=== PATIENT | male | born 1975 | race Caucasian/White ===

== ENCOUNTER 2016-06-12 05:15 | Emergency (ER) | payer MEDICARE, MEDICAID ==
[~2016-06-12 05:15] MED LIST: AMLO5TAB22 PO; ASPI81TA82 PO; CARV25TA PO; CIAL20TA PO; FLUD.1 PO; FURO20 PO; LEVEMIR SQ; LYRI50CA2 PO; MONT10TA2 PO; MYCO250C PO; NEPHRO PO; OMEP20TA PO; PRED1TAB PO; REGL5TAB PO; SENO8.6T10 PO; SULF400T20 PO; TACR1CAP PO; TYLE3 PO; VALC450T PO; VIAG100T PO; ZOCO40TA PO; [UNRECOGNIZED DRUG - SUPPLY] TOP
[2016-06-12 05:16] VITALS: BP 121/62; PULSE 74; RESP 16; TEMP 97.9; O2SAT 98
[2016-06-12 06:15] VITALS: BP 114/62; PULSE 74; O2SAT 100
[2016-06-12 06:50] LABS: AUTOMATED NEUTROPHIL # 10.5 TH/MM3 (1.8-7.7); BASOPHIL # 0.2 TH/MM3 (0-0.2); BASOPHIL % 1.4 % (0.0-2.0); EOSINOPHIL # 0.3 TH/MM3 (0-0.4); EOSINOPHIL % 2.2 % (0.0-4.0); HEMATOCRIT 54.5 % (39.0-51.0); LYMPH % 4.8 % (9.0-44.0); LYMPHOCYTE # 0.6 TH/MM3 (1.0-4.8); MEAN CELL VOLUME 92.1 FL (80.0-100.0); MEAN CORPUSCULAR HEMOGLOBIN 29.9 PG (27.0-34.0); MEAN CORPUSCULAR HGB CONC 32.5 % (32.0-36.0); MONO % 13.1 % (0.0-8.0); NEUT % 78.5 % (16.0-70.0); PLATELET COUNT 199 TH/MM3 (150-450); RED BLOOD COUNT 5.91 MIL/MM3 (4.50-5.90); RED CELL DISTRIBUTION WIDTH 16.7 % (11.6-17.2); WHITE BLOOD COUNT 13.3 TH/MM3 (4.0-11.0)
[2016-06-12 06:53] LABS: HEMO FLAGS AUTO DIFF
[2016-06-12 07:03] LABS: ALT (GPT) 48 U/L (12-78); ANION GAP 7 MEQ/L (5-15); APTT (PATIENT) 32.6 SEC (24.3-30.1); AST (GOT) 41 U/L (15-37); BICARBONATE 18.2 MEQ/L (21.0-32.0); BLOOD UREA NITROGEN 52 MG/DL (7-18); CHLORIDE 114 MEQ/L (98-107); GLOMERULAR FILTRATION RATE 49 ML/MIN (>89); MAGNESIUM 2.7 MG/DL (1.5-2.5); POTASSIUM 4.6 MEQ/L (3.5-5.1); PROTHROMBIN TIME - PATIENT 11.2 SEC (9.8-11.6); SODIUM (NA) 139 MEQ/L (136-145)
[2016-06-12 07:04] LABS: ALKALINE PHOSPHATASE 99 U/L (45-117); TOTAL BILIRUBIN ADULT 0.7 MG/DL (0.2-1.0)
--- NOTE | 2016-06-12 07:26 | PD ---
HPI Chief Complaint: Edema Time Seen by Provider: 05:42 Travel History International Travel<30 days: No Contact w/Intl Traveler<30days: No History of Present Illness HPI The patient is 40 year old male who presents to the [facility] emergency department with a history of left leg pain, redness, swelling that he reports began today. He denies having any associated fevers. He reports that there is warmth to the leg. He reports that 3 weeks ago he underwent amputation of his second toe. He reports that this was done by Dr. Monaco at [facility]. He reports that this past week the sutures were removed. He reports that he is also had a wound on his heel that is monitored by his support dba as an outpatient. He reports that he's had multiple scrapings done of his heel in the past. 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 The patient reports that his primary care physician is Dr. Mary Cintron. The patient on review of systems denies having any cough, congestion, neck pain, chest pain, shortness of breath, abdominal pain, vomiting, urinary symptoms, or neurologic symptoms. 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 He denies having any blood in his stool or black or tarry stools. [facility] Past Medical History Narrative Medical The patient's past medical history is significant for chronic renal failure status post renal transplant January 2015, history of diabetes mellitus, history of neuropathy, history of kidney stones, history of hypertension, acid reflux, history of multiple allergies. Hx Anticoagulant Therapy: Yes ADHD: Yes Anemia: Yes Arthritis: No Asthma: No Autoimmune Disease: No Blood Disorders: No Anxiety: No Depression: No Heart Rhythm Problems: No Cancer: No Cardiovascular Problems: No High Cholesterol: No Chemotherapy: No Chest Pain: No Congestive Heart Failure: No COPD: No Cerebrovascular Accident: No Diabetes: Yes (RENAL FAILURE SHUNT LEFT ARM) Patient Takes Glucophage: No Diminished Hearing: No Endocrine: No Gastrointestinal Disorders: Yes (hx of gastric by-pass) GERD: Yes Glaucoma: No Genitourinary: Yes (end stage renal failure) Headaches: No Hepatitis: No Hiatal Hernia: No Hypertension: Yes Immune Disorder: No Implanted Vascular Access Dvce: No Kidney Stones: Yes Medical other: Yes (hx of anemia pancreatic failure) Musculoskeletal: No Neurologic: No Psychiatric: No Reproductive: No Respiratory: No Migraines: No Myocardial Infarction: No Radiation Therapy: No Renal Failure: Yes Seizures: No Sickle Cell Disease: No Sleep Apnea: No Thyroid Disease: No Ulcer: No Past Surgical History Narrative Surgical The patient's past surgical history is significant for an umbilical hernia repair, fistula AV left arm, history of gastric bypass, history of pancreatic transplant, history of kidney transplant. Abdominal Surgery: Yes (gastric by-pass umbilical hernia repair bowel blockage due to hernia) AICD: No Appendectomy: No Arteriovenous Shunt: No Cardiac Surgery: No Cholecystectomy: No Ear Surgery: No Endocrine Surgery: No Eye Surgery: No Genitourinary Surgery: No Gynecologic Surgery: No Insulin Pump: No Joint Replacement: No Neurologic Surgery: No Oral Surgery: Yes (DENTAL SURGERY) Pacemaker: No Thoracic Surgery: No Other Surgery: Yes (pacreas and bilateral kidney trasnplant) Social History Alcohol Use: No Tobacco Use: No (quit within the last year) Substance Use: No Allergies-Medications (Allergen,Severity, Reaction): Coded Allergies: Benadryl (Verified Allergy, Severe, Itching, 06/12/16) Shellfish (Verified Allergy, Severe, ITCHY THROAT, EYES SWELL, 06/12/16) Kelp (Verified Allergy, Intermediate, ITCHY THROAT, EYES SWELL, 06/12/16) Nicorette Gum (Verified Allergy, Intermediate, ITCHY THROAT, EYES SWELL, ) Tomato (Unverified Allergy, Unknown, Edema, 06/12/16) tongue and throat Reported Meds & Prescriptions Reported Meds & Active Scripts Active Viagra (Sildenafil Citrate) 100 Mg Tab 100 Mg PO DIRECTED Cialis (Tadalafil) 20 Mg Tab 20 Mg PO DAILY PRN Omeprazole 20 mg (Omeprazole) 20 Mg Tab 1 Tab PO BID Lasix 20 Mg Tab (Furosemide) 20 Mg Tab 20 Mg PO DAILY Amlodipine Besylate 5 mg (Amlodipine Besylate) 5 Mg Tab 1 Tab PO DAILY Florinef (Fludrocortisone Acetate) 0.1 Mg Tab 0.1 Mg PO DAILY Reglan 5 mg (Metoclopramide HCl) 5 Mg Tab 1 Tab PO BID Singulair (Montelukast Sodium) 10 Mg Tab 10 Mg PO DAILY Lyrica (Pregabalin) 50 Mg Cap 50 Mg PO DAILY Tylenol #3 (Acetaminophen/Codeine Phosphate) Acetaminophen 300/30 Codeine Tab 1 Tab PO Q6H PRN FOR PAIN Carvedilol 25 mg (Carvedilol) 25 Mg Tab 1 Tab PO BID Senokot S (Sennosides-Docusate Sodium) 1 Tab Tab 1 Tab PO BID Valcyte (Valganciclovir) 450 Mg Tab 450 Mg PO DAILY Septra (Sulfamethoxazole-Trimethoprim 400MG/80MG) Tab 1 Tab PO DAILY Aspir-81 (Aspirin) 81 Mg Tab 81 Mg PO DAILY Mycophenolate Mofetil 250 Mg Cap 250 Mg PO BID 4 tabs twice a day Tacrolimus 1 mg (Tacrolimus) 1 Mg Cap 1 Mg PO BID Takes 5 tabs bid Prednisone 1 Mg Tab 5 Mg PO DAILY Taking 4 tabs per day [contournexstriptest] Strip TOP TID Reported Nephro-Justin Rx (Vitamin B Complex/Vit C/Folic Acid) 1 Cap Tab 1 Cap PO DAILY Zocor 40 mg (Simvastatin) 40 Mg Tab 20 Tab PO DAILY Review of Systems Except as stated in HPI: all other systems reviewed are Neg General / Constitutional: No: Fever Eyes: No: Visual changes HENT: No: Headaches Cardiovascular: No: Chest Pain or Discomfort Respiratory: No: Shortness of Breath Gastrointestinal: Positive: Diarrhea (chronic loose stools), No: Nausea, Vomiting, Abdominal Pain, Hematemesis, Hematochezia, Changes in Bowel Habits, Indigestion, Loss of Appetite Genitourinary: No: Dysuria Musculoskeletal: No: Pain Skin: No Rash Neurologic: No: Weakness, Focal Abnormalities, Change in Mentation, Slurred Speech, Sensory Disturbance Psychiatric: No: Depression Endocrine: No: Polydipsia Hematologic/Lymphatic: No: Easy Bruising Physical Exam Narrative General: The patient is a well-developed well-nourished male in no acute distress. Head and Neck exam: Head is normocephalic atraumatic. Eyes: EOMI, pupils are equal round and reactive to light. Nose: Midline septum with pink mucous membranes Mouth: Dentition unremarkable. Moist mucus membranes. Posterior oropharynx is erythematous with white patches along the soft palate on posterior oropharynx is suspicious for thrush. No tonsillar hypertrophy. Uvula midline. Airway patent. Neck: No palpable lymphadenopathy. No nuchal rigidity. No thyromegaly. Cardiovascular: Regular rate and rhythm without murmurs, gallops, or rubs. Lungs: Clear to auscultation bilaterally. No wheezes, rhonchi, or rales. Abdomen: Soft, without tenderness to palpation in all 4 quadrants of the abdomen. No guarding, rebound, or rigidity. Normal bowel sounds are audible. No tenderness on palpation of McBurney's point. Extremities: No clubbing or cyanosis. The patient on examination of the left foot is noted to have a second toe amputation with the wound with some drainage noted overlying the distal second metatarsal. There is no granulation tissue noted. The patient on examination of the left leg is noted to have swelling, erythema, warmth on palpation with tenderness on palpation. The patient has left-sided calf tenderness on palpation. The patient has less than 4 second capillary refill of his other digits of that foot. The patient has 1+ dorsalis pedis pulse bilaterally. The patient has 2+ radial pulses bilateral upper extremities. Additionally on the patient's left foot he has heel ulcer. He reports that this is been chronic and debrided on multiple occasions. He reports that this is unchanged compared to previously. It is approximately 3-4 cm in greatest dimension. Back: No costovertebral angle tenderness to palpation. Neurologic Exam: Grossly nonfocal. Data Data Last Documented VS Vital Signs Date Time Temp Pulse Resp B/P Pulse Ox O2 Delivery O2 Flow Rate FiO2 06/12/16 06:30 16 99 Room Air 06/12/16 06:15 74 114/62 06/12/16 05:16 97.9 Orders Complete Blood Count With Diff (06/12/16 06:16) Comprehensive Metabolic Panel (06/12/16 06:16) Prothrombin Time / Inr (Pt) (06/12/16 06:16) Act Partial Throm Time (Ptt) (06/12/16 06:16) C-Reactive Protein (Crp) (06/12/16 06:16) Magnesium (Mg) (06/12/16 06:16) Iv Access Insert/Monitor (06/12/16 06:16) Ecg Monitoring (06/12/16 06:16) Oximetry (06/12/16 06:16) Us Leg Venous Doppler (06/12/16 06:16) Wound Culture And Gram Stain (06/12/16 06:39) Sodium Chlor 0.9% 1000 Ml Inj (Ns 1000 M (06/12/16 07:30) Vancomycin Inj (Vancomycin Inj) (06/12/16 07:30) Piperacil-Tazo 3.375 Gm Premix (Zosyn 3. (06/12/16 07:30) Labs Laboratory Tests Test 06/12/16 06:30 White Blood Count 13.3 TH/MM3 Red Blood Count 5.91 MIL/MM3 Hemoglobin 17.7 GM/DL Hematocrit 54.5 % Mean Corpuscular Volume 92.1 FL Mean Corpuscular Hemoglobin 29.9 PG Mean Corpuscular Hemoglobin 32.5 % Concent Red Cell Distribution Width 16.7 % Platelet Count 199 TH/MM3 Mean Platelet Volume 9.0 FL Neutrophils (%) (Auto) 78.5 % Lymphocytes (%) (Auto) 4.8 % Monocytes (%) (Auto) 13.1 % Eosinophils (%) (Auto) 2.2 % Basophils (%) (Auto) 1.4 % Neutrophils # (Auto) 10.5 TH/MM3 Lymphocytes # (Auto) 0.6 TH/MM3 Monocytes # (Auto) 1.8 TH/MM3 Eosinophils # (Auto) 0.3 TH/MM3 Basophils # (Auto) 0.2 TH/MM3 CBC Comment AUTO DIFF Prothrombin Time 11.2 SEC Prothromb Time International 1.0 RATIO Ratio Activated Partial 32.6 SEC Thromboplast Time Sodium Level 139 MEQ/L Potassium Level 4.6 MEQ/L Chloride Level 114 MEQ/L Carbon Dioxide Level 18.2 MEQ/L Anion Gap 7 MEQ/L Blood Urea Nitrogen 52 MG/DL Creatinine 1.58 MG/DL Estimat Glomerular Filtration 49 ML/MIN Rate Random Glucose 82 MG/DL Calcium Level 10.0 MG/DL Magnesium Level 2.7 MG/DL Total Bilirubin 0.7 MG/DL Aspartate Amino Transf 41 U/L (AST/SGOT) Alanine Aminotransferase 48 U/L (ALT/SGPT) Alkaline Phosphatase 99 U/L C-Reactive Protein 10.10 MG/DL Total Protein 6.7 GM/DL Albumin 3.3 GM/DL MDM Medical Decision Making Medical Screen Exam Complete: Yes Emergency Medical Condition: Yes Medical Record Reviewed: Yes Differential Diagnosis Cellulitis, versus DVT, versus sepsis Narrative Course During the course of the patients emergency department visit, the patients history, examination, and differential diagnosis were reviewed with the patient. The patient had IV access obtained and blood work sent for analysis. The patient was placed on a heel blacker with oximetry and blood pressure monitoring. The patient was initially provided normal saline 1 L IV fluid bolus, Zosyn 3.375 g IV, vancomycin 1 g IV. The patients laboratory studies were reviewed and remarkable for white count of 13.3, hemoglobin 17.7, platelets 199 with neutrophils 78.5, CMP is remarkable for chloride of 114, CO2 18.2, BUN 52, creatinine 1.58, magnesium 2.7 , AST 41, C-reactive protein 10.10, INR 1.0 I explained to the patient that he would require admission to the hospital for treatment due to his immunocompromise state and infection associated with cellulitis postop. The patient reports that he prefers to be transferred to [facility] where his surgery was done that he can be followed by a surgeon. The patient's ultrasound is currently pending. The patient's case is checked out to the oncoming physician to disposition the patient. Diagnosis Primary Impression: Cellulitis Qualified Code: L03.116 - Cellulitis of left lower extremity Additional Impressions: Postoperative infection Qualified Code: T81.4XXA - Postoperative infection, initial encounter Immunocompromised state Thrush Admitting Information Admitting Physician Requests: Admit Darling Kilgore MD Jun 12, 2016 07:26
[2016-06-12] MEDS ORDERED: VANCOMYCIN INJ 1,000 MG in SODIUM CHLOR 0.9% 250 ML INJ 250 ML IV ONE (07:30)
[2016-06-12] MEDS ORDERED: SODIUM CHLOR 0.9% 1000 ML INJ 1,000 ML IV ONE (07:30)
[2016-06-12] MEDS ORDERED: PIPERACIL-TAZO 3.375 GM PREMIX 50 ML IV ONE (07:30)
[2016-06-12 07:34] LABS: SCAN/DIFF AUTO DIFF CONFIRMED
--- NOTE | 2016-06-12 07:39 | PD ---
Physical Exam Date Seen by Provider: Jun 12, 2016 Time Seen by Provider: 07:36 Narrative The patient is a 40-year-old male who was initially evaluated by the previous physician, Dr. Kilgore. Please refer to the initial history, physical, diagnostic evaluation, and treatment modality plan. The patient was signed out at 7 AM with laboratory evaluation and ultrasound pending. Data Data Last Documented VS Vital Signs Date Time Temp Pulse Resp B/P Pulse Ox O2 Delivery O2 Flow Rate FiO2 06/12/16 07:44 70 16 135/71 98 Room Air 06/12/16 05:16 97.9 Orders Complete Blood Count With Diff (06/12/16 06:16) Comprehensive Metabolic Panel (06/12/16 06:16) Prothrombin Time / Inr (Pt) (06/12/16 06:16) Act Partial Throm Time (Ptt) (06/12/16 06:16) C-Reactive Protein (Crp) (06/12/16 06:16) Magnesium (Mg) (06/12/16 06:16) Iv Access Insert/Monitor (06/12/16 06:16) Ecg Monitoring (06/12/16 06:16) Oximetry (06/12/16 06:16) Us Leg Venous Doppler (06/12/16 06:16) Wound Culture And Gram Stain (06/12/16 06:39) Sodium Chlor 0.9% 1000 Ml Inj (Ns 1000 M (06/12/16 07:30) Vancomycin Inj (Vancomycin Inj) (06/12/16 07:30) Piperacil-Tazo 3.375 Gm Premix (Zosyn 3. (06/12/16 07:30) Labs Laboratory Tests Test 06/12/16 06:30 White Blood Count 13.3 TH/MM3 Red Blood Count 5.91 MIL/MM3 Hemoglobin 17.7 GM/DL Hematocrit 54.5 % Mean Corpuscular Volume 92.1 FL Mean Corpuscular Hemoglobin 29.9 PG Mean Corpuscular Hemoglobin 32.5 % Concent Red Cell Distribution Width 16.7 % Platelet Count 199 TH/MM3 Mean Platelet Volume 9.0 FL Neutrophils (%) (Auto) 78.5 % Lymphocytes (%) (Auto) 4.8 % Monocytes (%) (Auto) 13.1 % Eosinophils (%) (Auto) 2.2 % Basophils (%) (Auto) 1.4 % Neutrophils # (Auto) 10.5 TH/MM3 Lymphocytes # (Auto) 0.6 TH/MM3 Monocytes # (Auto) 1.8 TH/MM3 Eosinophils # (Auto) 0.3 TH/MM3 Basophils # (Auto) 0.2 TH/MM3 CBC Comment AUTO DIFF Differential Comment AUTO DIFF CONFIRMED Prothrombin Time 11.2 SEC Prothromb Time International 1.0 RATIO Ratio Activated Partial 32.6 SEC Thromboplast Time Sodium Level 139 MEQ/L Potassium Level 4.6 MEQ/L Chloride Level 114 MEQ/L Carbon Dioxide Level 18.2 MEQ/L Anion Gap 7 MEQ/L Blood Urea Nitrogen 52 MG/DL Creatinine 1.58 MG/DL Estimat Glomerular Filtration 49 ML/MIN Rate Random Glucose 82 MG/DL Calcium Level 10.0 MG/DL Magnesium Level 2.7 MG/DL Total Bilirubin 0.7 MG/DL Aspartate Amino Transf 41 U/L (AST/SGOT) Alanine Aminotransferase 48 U/L (ALT/SGPT) Alkaline Phosphatase 99 U/L C-Reactive Protein 10.10 MG/DL Total Protein 6.7 GM/DL Albumin 3.3 GM/DL [facility] Medical Record Reviewed: Yes Supervised Visit with ISSA: No Interpretation(s) Laboratory Tests Test 06/12/16 06:30 White Blood Count 13.3 TH/MM3 Red Blood Count 5.91 MIL/MM3 Hemoglobin 17.7 GM/DL Hematocrit 54.5 % Mean Corpuscular Volume 92.1 FL Mean Corpuscular Hemoglobin 29.9 PG Mean Corpuscular Hemoglobin 32.5 % Concent Red Cell Distribution Width 16.7 % Platelet Count 199 TH/MM3 Mean Platelet Volume 9.0 FL Neutrophils (%) (Auto) 78.5 % Lymphocytes (%) (Auto) 4.8 % Monocytes (%) (Auto) 13.1 % Eosinophils (%) (Auto) 2.2 % Basophils (%) (Auto) 1.4 % Neutrophils # (Auto) 10.5 TH/MM3 Lymphocytes # (Auto) 0.6 TH/MM3 Monocytes # (Auto) 1.8 TH/MM3 Eosinophils # (Auto) 0.3 TH/MM3 Basophils # (Auto) 0.2 TH/MM3 CBC Comment AUTO DIFF Differential Comment AUTO DIFF CONFIRMED Prothrombin Time 11.2 SEC Prothromb Time International 1.0 RATIO Ratio Activated Partial 32.6 SEC Thromboplast Time Sodium Level 139 MEQ/L Potassium Level 4.6 MEQ/L Chloride Level 114 MEQ/L Carbon Dioxide Level 18.2 MEQ/L Anion Gap 7 MEQ/L Blood Urea Nitrogen 52 MG/DL Creatinine 1.58 MG/DL Estimat Glomerular Filtration 49 ML/MIN Rate Random Glucose 82 MG/DL Calcium Level 10.0 MG/DL Magnesium Level 2.7 MG/DL Total Bilirubin 0.7 MG/DL Aspartate Amino Transf 41 U/L (AST/SGOT) Alanine Aminotransferase 48 U/L (ALT/SGPT) Alkaline Phosphatase 99 U/L C-Reactive Protein 10.10 MG/DL Total Protein 6.7 GM/DL Albumin 3.3 GM/DL Last Impressions Lower Extremity Ultrasound 06/12/16 0616 Signed Impressions: Service Date/Time: Sunday, June 12, 2016 08:03 - CONCLUSION: Negative exam with no evidence of deep venous thrombosis. Dilan Arreola MD Differential Diagnosis Differential diagnosis includes cellulitis, postoperative infection, DVT, abscess, immunocompromised, chronic renal failure. Narrative Course The patient was initially evaluated by the previous physician, Dr. Kilgore. Please refer to the initial history, physical, diagnostic evaluation, and treatment modality plan. The patient has a recent history of surgery, 3 weeks ago last , second digital left foot. The patient had a toe amputation at that time. Patient now notes redness and swelling to left lower extremity, mild redness at the base of the surgical site which she states is chronic. The patient denies any fever, but does have a history of pancreatic/kidney transplant that was performed at [facility] in [place], [place]. The patient is currently on immunosuppressants including mycophenolate and tacrolimus. The patient had an ultrasound ordered and laboratory evaluation performed which revealed a mildly elevated white count of 13.3, but also elevated hemoglobin of 17.7, consistent with probable hemoconcentration and possible dehydration. CRP was levated greater than 10. The patient was administered Zosyn and vancomycin. The patient did not want admission at [facility], he would prefer to go to [facility] where he had a surgery performed. The patient does not want us to transfer the patient via EMS, he would prefer to sign out AGAINST MEDICAL ADVICE and drive his truck to [facility]. We attempted to place a call to his customer relations coordinator, Dr. Martinez, at 7:30 AM. I discussed the patient with Dr. Martinez' s partner at 8:40 AM who will notify Dr. Martinez that the patient plans on going to [facility]. Ultrasound is negative for DVT. I had a discussion with the patient once again regarding admission, however, he would prefer to go to [facility]. I advised the patient we could call and arrange for transfer, however, he does not want to leave his truck in the parking lot. Therefore, patient is going to sign out against biomedical technician. The patient will be provided a copy of his ultrasound results and lab results at discharge. He is advised to return if symptoms worsen or progress. Diagnosis Primary Impression: Cellulitis Qualified Code: L03.116 - Cellulitis of left lower extremity Additional Impression: Immunocompromised state Additional Instruction: Please provide the patient a copy of his labs and ultrasound results at discharge. Return if symptoms worsen or progress. Follow-up with your customer relations coordinator. Disposition: 07 AGAINST MEDICAL ADVICE Condition: Stable Peter Padron MD Jun 12, 2016 07:39
[2016-06-12 07:44] VITALS: BP 135/71; PULSE 70; RESP 16; O2SAT 98
--- NOTE | 2016-06-12 09:58 | RADRPT ---
EXAM DATE/TIME: 06/12/2016 08:03 [facility] COMPARISON: No previous studies available for comparison. INDICATIONS : Left leg pain. MEDICAL HISTORY : Hypertension. Renal calculi. Renal disease. Renal failure. Diabetes. SURGICAL HISTORY : Gastric by-pass. Umbilical hernia repair. Colectomy. Pancrease and bilateral kidney transplant. Renal failure shunt in left arm. ENCOUNTER: Initial ACUITY: 1 week PAIN SCORE: 6/10 LOCATION: Left Lower extremity TECHNIQUE: Venous ultrasound of the leg was performed from the inguinal ligament to the proximal calf. Real-bossman e, color Doppler and spectral tracing, compression and augmentation techniques were used. FINDINGS: There is normal compressibility of the deep venous system from the inguinal region to the proximal ca lf. No echogenic clot is seen in the lumen of the common femoral, femoral, popliteal, and posterior tibial veins. There is a normal response of the venous system to proximal and distal augmentation an d respiration. CONCLUSION: Negative exam with no evidence of deep venous thrombosis. Dilan Arreola MD on June 12, 2016 at 9:56 Board Certified Radiologist. This report was verified electronically.
[2016-06-12 11:45] VITALS: BP 114/59
== END 2016-06-12 11:48 | disposition left against medical advice (07) ==
LOC: NEPC 05:15
DX: L03.116 Cellulitis of left lower limb (principal); T81.4XXA Infection following a procedure, initial encounter; B96.5 Pseudomonas (aeruginosa) (mallei) (pseudomallei) as the cause of diseases classified elsewhere; E11.9 Type 2 diabetes mellitus without complications; I10 Essential (primary) hypertension; Z94.0 Kidney transplant status; Z98.84 Bariatric surgery status; Z87.442 Personal history of urinary calculi; Z94.83 Pancreas transplant status; B37.9 Candidiasis, unspecified; R60.0 Localized edema; D89.9 Disorder involving the immune mechanism, unspecified
CPT/HCPCS: 80053; 83735; 85025; 85610; 85730; 86140; 86403; 87070; 87077; 87186; 93971; 96365; 96367; 99283; J2543; J3370; J7030; J7050